=== PATIENT | male | born 1985 | race Caucasian/White ===

== ENCOUNTER 2016-07-05 08:28 | Emergency (ER) | payer SELFPAY ==
[~2016-07-05] VITALS: Ht 177.8 cm; Wt 94.8 kg
[2016-07-05 08:33] VITALS: BP_SYST 134
[2016-07-05 09:21] LABS: BILIRUBIN,URINE NEGATIVE (NEGATIVE); BLOOD, URINE 1+ (NEGATIVE); CLARITY/URINE SL HAZY (CLEAR); COLOR,URINE YELLOW (YELLOW); GLUCOSE,URINE NEGATIVE (NEGATIVE); KETONES,URINE NEGATIVE (NEGATIVE); LEUKOCYTE ESTERASE ,URINE 1+ (NEGATIVE); NITRITE, URINE NEGATIVE (NEGATIVE); PROTEIN URINE TRACE (NEGATIVE); UROBILINOGEN,URINE 0.2 (0.2-1.0)
[2016-07-05 09:21] LABS: BASOPHILS # (AUTO) 0.1 K/uL (0.0-0.2); BASOPHILS % (AUTO) 0.5 % (0.0-2.0); EOSINOPHILS # (AUTO) 0.1 K/uL (0.0-0.4); EOSINOPHILS % (AUTO) 0.4 % (0.0-4.0); HEMATOCRIT 40.8 % (36-54); HEMOGLOBIN 14.1 g/dL (14.0-18.0); LYMPHOCYTES # (AUTO) 1.5 K/uL (1.0-5.5); LYMPHOCYTES % (AUTO) 11.1 % (20.5-51.5); MEAN CORPUSCULAR HEMOGLOBIN 31 pg (27-31); MEAN CORPUSCULAR HGB CONC 35 % (32-36); MEAN CORPUSCULAR VOLUME 90 fL (79.0-98.0); MONOCYTES # (AUTO) 0.7 K/uL (0.0-1.0); MONOCYTES % (AUTO) 4.9 % (1.7-9.3); NEUTROPHILS # (AUTO) 11.2 K/uL (1.8-7.7); NEUTROPHILS % (AUTO) 83.1 % (40.0-70.0); PLATELET COUNT (AUTO) 207 K/uL (130-430); RED BLOOD CELL COUNT(AUTO) 4.55 MIL/uL (4.2-6.2); RED CELL DISTRIBUTION WIDTH 11.8 % (9.0-15.0); WHITE BLOOD COUNT (AUTO) 13.6 K/uL (4.8-10.8)
[2016-07-05 09:23] LABS: CALCIUM 8.5 mg/dL (8.4-11.0); CREATININE 0.9 mg/dL (0.55-1.30); POTASSIUM 4.4 mmol/L (3.5-5.1)
[2016-07-05 09:27] LABS: INR 0.9 (0.80-1.20); PROTHROMBIN TIME 10.2 SECS (9.5-12.5)
[2016-07-05 09:28] LABS: ALBUMIN 3.5 g/dL (3.4-4.8); TOTAL BILIRUBIN 0.4 mg/dL (0.0-1.0); TOTAL PROTEIN, SERUM 7.1 g/dL (6.4-8.3)
[2016-07-05 09:31] LABS: BACTERIA,URINE MODERATE /HPF (None Seen); MUCUS,URINE 1+ /LPF (None Seen); RBC,URINE 0-3 /HPF (0-3)
[2016-07-05] MEDS ORDERED: AZITHROMYCIN 250 MG TABLET PO ONE (10:00)
[2016-07-05] MEDS ORDERED: cefTRIAXone 250 MG in LIDOCAINE 1%, 20 ML MDV 0.9 ML IM ONE (10:00)
[2016-07-05 10:30] VITALS: BP_SYST 128
== END 2016-07-05 10:30 | disposition home or self-care (01) ==
LOC: SED 08:28
DX: N45.2 Orchitis (principal)
CPT/HCPCS: 36415; 76870; 80053; 81000; 85025; 85610; 85730; 87086; 96372; 99285; J0696; J2001; Q0144

== ENCOUNTER 2016-08-02 18:03 | Emergency (ER) | payer SELFPAY ==
[~2016-08-02] VITALS: Ht 180.3 cm; Wt 91.2 kg
[2016-08-02 18:14] VITALS: BP 156/96; PULSE 68; RESP 16; TEMP 97.4; O2SAT 98
[2016-08-02 19:53] LABS: BASOPHILS % (AUTO) 0.4 % (0.0-2.0); EOSINOPHILS % (AUTO) 0.6 % (0.0-4.0); HEMATOCRIT 43.8 % (36-54); HEMOGLOBIN 14.4 g/dL (14.0-18.0); LYMPHOCYTES # (AUTO) 2.3 K/uL (1.0-5.5); LYMPHOCYTES % (AUTO) 27.9 % (20.5-51.5); MEAN CORPUSCULAR HEMOGLOBIN 30 pg (27-31); MEAN CORPUSCULAR HGB CONC 33 % (32-36); MEAN CORPUSCULAR VOLUME 92 fL (79.0-98.0); MONOCYTES # (AUTO) 0.6 K/uL (0.0-1.0); MONOCYTES % (AUTO) 7.1 % (1.7-9.3); NEUTROPHILS # (AUTO) 5.4 K/uL (1.8-7.7); PLATELET COUNT (AUTO) 178 K/uL (130-430); RED BLOOD CELL COUNT(AUTO) 4.78 MIL/uL (4.2-6.2); RED CELL DISTRIBUTION WIDTH 12.2 % (9.0-15.0); WHITE BLOOD COUNT (AUTO) 8.3 K/uL (4.8-10.8)
[2016-08-02 19:59] LABS: BILIRUBIN,URINE NEGATIVE (NEGATIVE); BLOOD, URINE 3+ (NEGATIVE); CLARITY/URINE SL CLOUDY (CLEAR); COLOR,URINE YELLOW (YELLOW); GLUCOSE,URINE NEGATIVE (NEGATIVE); KETONES,URINE NEGATIVE (NEGATIVE); LEUKOCYTE ESTERASE ,URINE NEGATIVE (NEGATIVE); NITRITE, URINE NEGATIVE (NEGATIVE); PH,URINE 5.5 (5.0-8.0); PROTEIN URINE TRACE (NEGATIVE); UROBILINOGEN,URINE 0.2 (0.2-1.0)
[2016-08-02] MEDS ORDERED: NACL 0.9% 1,000 ML IV ONE (20:00)
[2016-08-02] MEDS ORDERED: KETOROLAC TROMETHAMINE 30 MG VIAL IVP ONE (20:00)
[2016-08-02 20:04] LABS: CREATININE 0.77 mg/dL (0.55-1.30); POTASSIUM 4.2 mmol/L (3.5-5.1)
[2016-08-02 20:08] LABS: ALBUMIN 4.1 g/dL (3.4-4.8); TOTAL BILIRUBIN 0.3 mg/dL (0.0-1.0); TOTAL PROTEIN, SERUM 7.3 g/dL (6.4-8.3)
[2016-08-02 20:47] LABS: BACTERIA,URINE MODERATE /HPF (None Seen); MUCUS,URINE 1+ /LPF (None Seen); RBC,URINE >100 /HPF (0-3)
[2016-08-02] MEDS ORDERED: KETOROLAC TROMETHAMINE 60 MG/2 ML VIAL IM ONE (21:00)
[2016-08-02] MEDS ORDERED: LIDOCAINE 1% 10 MG/ML, 20 ML MDV INJ ONE (21:00)
[2016-08-02] MEDS ORDERED: cefTRIAXone 1 GM VIAL IM ONE (21:00)
[2016-08-02 21:58] VITALS: BP 139/92; PULSE 64; RESP 20; TEMP 98.2; O2SAT 99
== END 2016-08-02 21:58 | disposition home or self-care (01) ==
LOC: SED 18:03
DX: N20.0 Calculus of kidney (principal); N39.0 Urinary tract infection, site not specified
CPT/HCPCS: 36415; 74176; 80053; 81000; 83690; 85025; 87086; 96372; 99285; J0696; J1885; J2001; J7030

== ENCOUNTER 2017-05-13 09:37 | Emergency (ER) | payer SELFPAY ==
[~2017-05-13] VITALS: Ht 175.3 cm; Wt 92.1 kg
[2017-05-13 09:43] VITALS: BP_SYST 148
--- NOTE | 2017-05-13 09:48 | NUR ---
Pt ambulated to bed 4
--- NOTE | 2017-05-13 09:48 | NUR ---
Pt report received from HARJIT Lyman. Pt c/o mid-lower back pain, onset yesterday with increase in intensity this AM upon awakening. Pt states that he usually gets pain to Right lower back, but this time it's moved to the center and is excruciating upon standing. No neuromuscular deficits or incontinence noted.
--- NOTE | 2017-05-13 10:00 | NUR ---
Dr. Lovett at bedside to assess pt.
[2017-05-13] MEDS ORDERED: KETOROLAC TROMETHAMINE 30 MG VIAL IVP ONE (10:30)
--- NOTE | 2017-05-13 10:30 | NUR ---
Pt to CT via stretcher.
--- NOTE | 2017-05-13 10:40 | NUR ---
Pt returns from CT.
[2017-05-13 11:55] VITALS: BP_SYST 110
--- NOTE | 2017-05-13 11:55 | NUR ---
Patient given written and verbal discharge instructions and verbalizes understanding. ER MD discussed with patient the results and treatment provided. Patient in stable condition. ID arm band removed. IV catheter removed intact and dressing applied, no active bleeding. Rx of Ibuprofen given. Patient educated on pain management and to follow up with PMD. Pain Scale 3/10. Opportunity for questions provided and answered. Medication side effect fact sheet provided.
== END 2017-05-13 11:55 | disposition home or self-care (01) ==
LOC: SED 09:37
DX: M51.17 Intervertebral disc disorders with radiculopathy, lumbosacral region (principal); Z87.442 Personal history of urinary calculi
CPT/HCPCS: 72131; 74176; 96374; 99284; J1885

== ENCOUNTER 2017-12-20 22:28 | Emergency (ER) | payer SELFPAY ==
[~2017-12-20] VITALS: Ht 180.3 cm; Wt 87.1 kg
[2017-12-20 22:32] VITALS: BP_SYST 135
[2017-12-21 00:12] VITALS: BP_SYST 128
== END 2017-12-21 00:12 | disposition home or self-care (01) ==
LOC: SED 22:28
DX: R07.89 Other chest pain (principal)
CPT/HCPCS: 71045; 93005; 99284